=== PATIENT | female | born 1955 | race Caucasian/White ===

== ENCOUNTER 2018-12-12 09:35 | Day surgery (SDC) | payer OTHER, MEDICARE ==
[2018-12-12] MEDS ORDERED: MIDAZOLAM 1 MG/ML 2 ML INJ ×2 (11:00)
[2018-12-12] MEDS ORDERED: FENTAnyl 50 MCG/ML VIAL (11:01)
== END 2018-12-12 16:00 | disposition home or self-care (01) ==
LOC: GIL 09:35
DX: Z12.11 Encounter for screening for malignant neoplasm of colon (principal); K64.8 Other hemorrhoids
CPT/HCPCS: 45378